=== PATIENT | male | born 1965 | race African-American/Black ===

== ENCOUNTER 2017-02-03 17:23 | Emergency (ER) | payer SELFPAY ==
[~2017-02-03] VITALS: Ht 177.8 cm; Wt 60.5 kg
[~2017-02-03 17:23] MED LIST: Toprol XL PO; Tylenol
[2017-02-03 18:36] LABS: HEMATOCRIT 50.9 % (38.0-50.0); MCH 29.5 PG (29.0-34.0); MCHC 32.6 G/DL (30.0-36.0); MCV 90.6 FL (86-99); RBC DIS.WIDTH-CV 11.9 % (11.8-14.6); RBC DIS.WIDTH-SD 39.8 % (39-53); RED BLOOD COUNT 5.62 M/uL (4.00-5.50); WHITE BLOOD COUNT 13.1 K/uL (4.1-10.2)
[2017-02-03 18:43] LABS: CHLORIDE 102 mEq/L (99-109); POTASSIUM 3.4 mEq/L (3.7-5.4); SODIUM 138 mEq/L (136-147)
[2017-02-03 18:45] LABS: GLUCOSE 119 mg/dL (70-99)
[2017-02-03 18:46] LABS: ANION GAP 13 MEQ/L (2-14)
[2017-02-03 18:49] LABS: GFR ESTIMATE (CALCULATED) > 59 mL/min/
[2017-02-03 18:50] LABS: UREA NITROGEN (BUN) 18 mg/dL (9-23)
[2017-02-03 19:48] LABS: HEMATOLOGY COMMENT 1 SN; PLATELET CLUMPS PRESENT - PLATELET COUNT APPEARS ADQ.; PLATELET COUNT UNABLE TO REPORT K/uL (156-360)
[2017-02-03 20:27] LABS: ADD MIUA? YES; BILIRUBIN NEGATIVE; BLOOD SMALL; COLOR AMBER ((YELLOW)); GLUCOSE (STRIP) NEGATIVE; KETONES 5; LEUKOCYTES NEGATIVE; NITRITE NEGATIVE; PROTEIN (STRIP) 100; SPECIFIC GRAVITY 1.023 (1.000-1.030); UROBILINOGEN 0.2 MG/DL (0.2-1.0)
[2017-02-03 21:03] LABS: BACTERIA 1+ /HPF; CASTS PRESENT /LPF; EPITHELIAL CELLS RARE /HPF; HYALINE CASTS 0-5 /LPF; MUCUS RARE /LPF; RED BLOOD CELLS 0-5 /HPF (0-5); UCUL ADDED? NO; WHITE BLOOD CELLS 0-5 /HPF (0-5)
[2017-02-03] MEDS ORDERED: ZOFRAN ODT8 MG PO (21:07)
[2017-02-03 21:29] VITALS: BP 94/58
== END 2017-02-03 21:37 | disposition home or self-care (01) ==
LOC: EME 17:23
DX: R11.2 Nausea with vomiting, unspecified (principal); R19.7 Diarrhea, unspecified; F17.200 Nicotine dependence, unspecified, uncomplicated
CPT/HCPCS: 80048; 81003; 85027; 99281; 99285; J7030

== ENCOUNTER 2017-07-07 19:22 | Emergency (ER) | payer OTHER ==
[~2017-07-07] VITALS: Ht 177.8 cm; Wt 69.3 kg
[~2017-07-07 19:22] MED LIST changes: +ZOFRAN ODT8 MG PO
[2017-07-07] MEDS ORDERED: NAPROSYN500 MG PO (20:38)
[2017-07-07 21:22] VITALS: BP 88/67
== END 2017-07-07 21:29 | disposition home or self-care (01) ==
LOC: EME 19:22
PROC: 2W3MX1Z Immobilization of Left Lower Extremity using Splint (ICD-10-PCS; principal; 2017-07-07)
DX: S82.62XA Displaced fracture of lateral malleolus of left fibula, initial encounter for closed fracture (principal); M25.562 Pain in left knee; Y93.83 Activity, rough housing and horseplay; F17.200 Nicotine dependence, unspecified, uncomplicated
CPT/HCPCS: 73564; 73610; 99281; 99283